=== PATIENT | male | born 1980 | race Asian ===

== ENCOUNTER 2025-01-16 11:38 | Observation (INO) ==
[2025-01-16 12:17] LABS: Hematocrit (blood only) 46.7 % (42.0-52.0); Hemoglobin 16.3 g/dL (14.0-18.0); Immature Granulocytes # (auto) 0.22 K/uL (0.01-0.20); Immature Granulocytes % (auto) 2.9 %; Mean Corpuscular Hemoglobin 30.8 pg (25.0-34.0); Mean Corpuscular Volume 88.3 fL (80.0-100.0); Platelet Count 336 K/uL (130-400); RDW Standard Deviation 37.7 fL (36.4-46.3); Red Blood Count 5.29 M/uL (4.70-6.10); White Blood Count 7.65 K/ul (4.8-10.8)
--- NOTE | 2025-01-16 12:23 | Emergency Department Note ---
Impression & Plan Syncope and collapse, Elevated troponin, Hypophosphatemia, PADDY (acute kidney injury) ED Provider Note NAME: SHEELA NICHOLS AGE: 44 SEX: M : 1980 ARRIVES VIA: Ambulance INFORMANT: Patient ED PROVIDER(S): Elian Serrano MD CHIEF COMPLAINT: Syncope and collapse. PLAN: Disposition: Admit MEDICAL DECISION MAKING: The patient is a pleasant 44-year-old gentleman who presents to the emergency department via EMS for evaluation of syncope and collapse when he was running in the local half marathon. It was reported that the patient was nearly correction the race and had collapsed and was seen on the ground by bystanders at. Report was unclear if the patient was witnessed to have myoclonus, seizure-like activity. Patient heart regaining consciousness and vomiting. Patient was given IV fluid hydration and 4 mg of Zofran by EMS. Patient reports he runs a 10K daily without difficulty. He reports that he never experiences exertional chest pain or dizziness or syncope or near syncope. He does admit that he hydrates poorly and drinks mostly coffee during the day. He reports he will have 1-2 glasses of wine in the evening at most. He reports feeling healthy prior to today. At this time patient reports feeling improved and back to normal after receiving IV fluid hydration. He denies any head pain or back pain. Patient denies any preceding symptoms including denies feeling nauseated, dizzy, chest pain or shortness of breath and does not recall fainting. Patient does report that he looked at his watch and his pace for the first half of the race was substantially faster than his normal pace when he runs. On evaluation the patient is fatigued appearing but no distress, afebrile with blood pressure 90s/60s and heart rate in the 90s and vital signs otherwise stable. He appears clinically dry. Blood pressure improved with IV fluid hydration. Exhibits no focal neurologic deficits. Head is atraumatic. No midline CTL spine tenderness palpation or step-offs. EKG without overt acute ischemia. CXR negative for acute cardiopulmonary process per my personal preliminary review/interpretation. WBC, H/H and platelets within normal limits. Chemistry without metabolic acidosis. Creatinine 1.49 with BUN of 25 consistent with PADDY. Phosphorus was 1.3 with IV repletion initiated. Initial high-sensitivity troponin 56.1 with repeat troponin rising to 182, nonspecific. CPK 170, within normal limits. Lipase normal. UA with 1+ ketones consistent with the patient's clinically dry appearance and otherwise no evidence of infection. 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 Upon reevaluation patient continue to feel improved following IV fluid hydration with 2 L normal saline and potassium Phos IV repletion. However, given his exertional syncope versus possible seizure with elevated troponin and abnormal finding on CT imaging he does agree with plan for admission for further assessment. [facility] the patient for [facility]. Further management per admitting team. Triage Nursing notes reviewed and agree them. Prior/external medical records reviewed Vital Signs: reviewed Differential diagnosis: Syncope, Epilepsy, infection, hypoglycemia, electrolyte abnormalities, cardiac sources, intracerebral event, trauma, toxicologic, neurologic as well as other pathologies. ER treatment provided: See below. Diagnostics interpreted by me: ECG: Normal sinus rhythm, 100 bpm, no ectopy, no Brugada, no overt ST elevation or depression, QTc 436, QRS 70. Cardiac Monitoring: An order for continuous cardiac monitoring was placed and demonstrated normal sinus rhythm, 100 bpm, no ectopy. Laboratory studies: See below Imaging studies: See below Consultation(s): Case was [facility] will [facility] the patient for admission. HPI: Per MDM. ROS: See above HPI for pertinent positives & negatives. A total of 10 systems reviewed and were otherwise negative. VITALS:See Below PHYSICAL EXAMINATION: GENERAL: Awake, alert, well-appearing, in no distress HENT: Normocephalic, atraumatic. Oropharynx with dry mucous membranes and otherwise unremarkable. EYES: Normal conjunctiva. Sclera non-icteric. EOMI. No nystamgus. PEARRL. NECK: Supple. No nuchal rigidity. FROM. No JVD. No midline tenderness to palpation or step-offs. RESPIRATORY: Clear to auscultation. CARDIAC: Regular rate, normal rhythm. No murmurs, rubs or gallops. Extremities warm and well perfused. Pulses equal. ABDOMEN: Soft, non-distended. No tenderness to palpation. No rebound or guarding. No masses. MUSCULOSKELETAL: Chest examination reveals no tenderness. The back is symmetrical on inspection without obvious abnormality. There is no CVA tenderness to palpation. No joint edema. LOWER EXTREMITIES: Calves are equal size bilaterally and non-tender. No edema. No discoloration. NEURO: Cranial nerves II-XII grossly intact. 5/5 strength and SILT x 4 extremities. Cerebellar function intact including [id number], alternating palms, [id number]. SKIN: No rash or jaundice noted. Elian Serrano MD Past Med/Surg History Problem List PADDY (acute kidney injury) (Acute) Hypophosphatemia (Acute) Elevated troponin (Acute) Syncope and collapse (Acute) Surgical History (Updated 01/16/25 @ 16:17 by Phillip Orr MD) History of ear surgery Family History Mother Breast cancer Social History Smoking Status: Never smoker Hx Alcohol Use: Yes Alcohol type: wine Hx Substance Use: No Preferred Language: Yi Communication Ability: Effective Civil Cadd Technician Required: No Beliefs That Will Affect Care: None Current Living Situation: Spouse and Family Current Living Situation Comment: and son Feels Safe at Home: Yes Assistive Devices: None Allergies Allergies Allergy/AdvReac Type Severity Reaction Status Date / Time No Known Allergies Allergy Unverified 01/16/25 15:43 Home Meds Home Medications Medication Instructions Recorded Confirmed No Known Home Medications 01/16/25 01/16/25 Results & Data (ED) Vital Signs Vital Signs - 24 hr 01/16/25 16:00 Pulse Rate [Apical] 78 Respiratory Rate 18 Respiratory Effort / Characteristics Non-Labored Spontaneous Respiratory Depth Normal Respiratory Pattern Regular Blood Pressure [Left Arm] 99/64 L Blood Pressure Mean [Left Arm] 75 Pulse Oximetry 100 Oxygen Delivery Method Room Air Laboratory Data Attestation: I reviewed the patient's lab results. 01/17/25 06:08 01/17/25 06:08 Lab Results 01/16/25 01/16/25 01/16/25 Range/Units 11:50 12:20 14:19 WBC 7.65 (4.8-10.8) K/ul RBC 5.29 (4.70-6.10) M/uL Hgb 16.3 (14.0-18.0) g/dL POC Hgb 12.6 L (14.0-18.0) g/dl Hct 46.7 (42.0-52.0) % POC Hct 37 L (42-52) % MCV 88.3 (80.0-100.0) fL MCH 30.8 (25.0-34.0) pg MCHC 34.9 (32.0-36.0) g/dL RDW Std Deviation 37.7 (36.4-46.3) fL RDW Coeff of Juany 11.9 (11.5-14.5) % Plt Count 336 (130-400) K/uL MPV 9.2 L (9.4-12.4) fL Immature Gran % (Auto) 2.9 % Neut % (Auto) 66.8 % Lymph % (Auto) 24.3 % [place] % (Auto) 3.4 % Eos % (Auto) 1.8 % Baso % (Auto) 0.8 % Neut # (Auto) 5.11 (1.40-6.50) K/uL Lymph # (Auto) 1.86 (1.20-3.40) K/uL [place] # (Auto) 0.26 (0.11-0.59) K/uL Eos # (Auto) 0.14 (0.00-0.50) K/uL Baso # (Auto) 0.06 (0.00-0.20) K/uL Immature Gran # (Auto) 0.22 H (0.01-0.20) K/uL PT 10.8 (9.0-12.0) Seconds INR 1.0 (0.9-1.1) POC Sodium 149 H (135-144) mmol/L Sodium 141 (136-145) mmol/L POC Potassium 3.4 (3.3-5.0) mmol/L Potassium 4.0 (3.5-5.1) mmol/L POC Chloride 113 H (101-112) mmol/L Chloride 108 H (98-107) mmol/L Carbon Dioxide 22 (21-32) mmol/L POC Total CO2 19 L (24-31) mmol/L Anion Gap 11 (3-11) POC Anion Gap 21.0 (16-25) mmol/L POC BUN 20 H (7-18) mg/dl BUN 25 H (6-23) mg/dl Creatinine 1.49 H (0.6-1.4) mg/dl POC Creatinine 1.1 (0.6-1.3) mg/dl Est Cr Clr Drug Dosing 55.0 ml/min eGFR 58.98 BUN/Creatinine Ratio 16.8 (10-20) Glucose 122 H (70-99(Fasting)) mg/dl POC Glucose (other) 56 L* (70-99) mg/dl Calcium 9.8 (8.6-10.3) mg/dl POC Ioniz Calcium Ruth 1.06 L (1.12-1.32) mmol/l Phosphorus 1.3 L* (2.5-4.9) mg/dl Magnesium 2.1 (1.7-2.4) mg/dl Total Bilirubin 0.4 (0.2-1.0) mg/dl AST 32 (13-39) U/L ALT 26 (7-52) U/L Alkaline Phosphatase 59 (34-104) U/L Total Creatine Kinase 170 (30-223) U/L Troponin I High Sens 56.1 H* 182.5 H* D (0-20) pg/ml Total Protein 7.7 (6.0-8.3) gm/dl Albumin 4.3 (3.4-5.0) gm/dl Globulin 3.4 (2.5-4.0) gm/dl Albumin/Globulin Ratio 1.3 (0.9-2) Lipase 49 (11-82) U/L Urine Color Urine Appearance (Clear) Urine pH (4.5-7.5) Ur Specific [place] (1.000-1.030) Urine Protein (Negative) Urine Glucose (UA) (Negative) Urine Ketones (Negative) Urine Blood (Negative) Urine Nitrite (Negative) Urine Bilirubin (Negative) Urine Urobilinogen (Negative) Ur Leukocyte Esterase (Negative) Urine WBC (Auto) (0-5) /hpf Urine RBC (Auto) (0-2) /hpf U Hyaline Cast (Auto) (0-2) /lpf U Epithel Cells (Auto) (0-2) /hpf Urine Bacteria (Auto) (None Seen) Hyaline Casts (None Presnt) /lpf Granular Casts (None Prsent) /lpf Urine Comment 01/16/25 Range/Units 15:14 WBC (4.8-10.8) K/ul RBC (4.70-6.10) M/uL Hgb (14.0-18.0) g/dL POC Hgb (14.0-18.0) g/dl Hct (42.0-52.0) % POC Hct (42-52) % MCV (80.0-100.0) fL MCH (25.0-34.0) pg MCHC (32.0-36.0) g/dL RDW Std Deviation (36.4-46.3) fL RDW Coeff of Ju[place] (11.5-14.5) % Plt Count (130-400) K/uL MPV (9.4-12.4) fL Immature Gran % (Auto) % Neut % (Auto) % Lymph % (Auto) % [place] % (Auto) % Eos % (Auto) % Baso % (Auto) % Neut # (Auto) (1.40-6.50) K/uL Lymph # (Auto) (1.20-3.40) K/uL [place] # (Auto) (0.11-0.59) K/uL Eos # (Auto) (0.00-0.50) K/uL Baso # (Auto) (0.00-0.20) K/uL Immature Gran # (Auto) (0.01-0.20) K/uL PT (9.0-12.0) Seconds INR (0.9-1.1) POC Sodium (135-144) mmol/L Sodium (136-145) mmol/L POC Potassium (3.3-5.0) mmol/L Potassium (3.5-5.1) mmol/L POC Chloride (101-112) mmol/L Chloride (98-107) mmol/L Carbon Dioxide (21-32) mmol/L POC Total CO2 (24-31) mmol/L Anion Gap (3-11) POC Anion Gap (16-25) mmol/L POC BUN (7-18) mg/dl BUN (6-23) mg/dl Creatinine (0.6-1.4) mg/dl POC Creatinine (0.6-1.3) mg/dl Est Cr Clr Drug Dosing ml/min eGFR BUN/Creatinine Ratio (10-20) Glucose (70-99(Fasting)) mg/dl POC Glucose (other) (70-99) mg/dl Calcium (8.6-10.3) mg/dl POC Ioniz Calcium Ruth (1.12-1.32) mmol/l Phosphorus (2.5-4.9) mg/dl Magnesium (1.7-2.4) mg/dl Total Bilirubin (0.2-1.0) mg/dl AST (13-39) U/L ALT (7-52) U/L Alkaline Phosphatase (34-104) U/L Total Creatine Kinase (30-223) U/L Troponin I High Sens (0-20) pg/ml Total Protein (6.0-8.3) gm/dl Albumin (3.4-5.0) gm/dl Globulin (2.5-4.0) gm/dl Albumin/Globulin Ratio (0.9-2) Lipase (11-82) U/L Urine Color Yellow Urine Appearance Clear (Clear) Urine pH 5.5 (4.5-7.5) Ur Specific [place] 1.020 (1.000-1.030) Urine Protein 1+ H (Negative) Urine Glucose (UA) Negative (Negative) Urine Ketones 1+ H (Negative) Urine Blood Negative (Negative) Urine Nitrite Negative (Negative) Urine Bilirubin Negative (Negative) Urine Urobilinogen Negative (Negative) Ur Leukocyte Esterase Negative (Negative) Urine WBC (Auto) 0-5 (0-5) /hpf Urine RBC (Auto) 0-2 (0-2) /hpf U Hyaline Cast (Auto) 11-20 H (0-2) /lpf U Epithel Cells (Auto) 3-5 H (0-2) /hpf Urine Bacteria (Auto) None Seen (None Seen) Hyaline Casts Present A (None Presnt) /lpf Granular Casts Present A (None Prsent) /lpf Urine Comment Administered Medications Discontinued Medications Sodium Chloride (Nss) 1,000 mls @ 999 mls/hr IV .Q1H1M ONE Stop: 01/16/25 12:49 Last Infusion: 01/16/25 15:00 Dose: Infused Documented By: Admin: 01/16/25 12:28 Dose: 999 mls/hr Documented By: AMS Sodium Chloride (Nss) 1,000 mls @ 999 mls/hr IV .Q1H1M ONE Stop: 01/16/25 13:47 Last Infusion: 01/16/25 15:00 Dose: Infused Documented By: Admin: 01/16/25 12:54 Dose: 999 mls/hr Documented By: MIKE Potassium Phosphate 9 mmol/ (Sodium Chloride) 253 mls @ 88 mls/hr IV ONE ONE Stop: 01/16/25 15:52 Last Infusion: 01/16/25 16:30 Dose: Infused Documented By: Admin: 01/16/25 13:15 Dose: 88 mls/hr Documented By: MICHEAL Sodium Chloride (Nss) 1,000 mls @ 125 mls/hr IV .Q8H TIM Stop: 01/20/25 00:00 Last Infusion: 01/17/25 11:34 Dose: Infused Documented By: Infusion: 01/17/25 10:08 Dose: 0 mls/hr Documented By: Admin: 01/17/25 09:21 Dose: 125 mls/hr Documented By: Infusion: 01/17/25 08:58 Dose: Infused Documented By: Admin: 01/17/25 00:17 Dose: 125 mls/hr Documented By: CAPRI Potassium Chloride (Potassium Chloride Crtab 20 Meq Tabcr) 40 meq PO NOW STA Stop: 01/17/25 07:50 Last Admin: 01/17/25 08:10 Dose: 40 meq Documented By: SMG Potassium Phosphate (Potassium Phos 3 Mmol/1 Ml Infusion) 9 mmol IV NOW STA Stop: 01/16/25 12:48 Last Admin: 01/16/25 13:18 Dose: Not Given Documented By: MICHEAL Imaging Data Radiologist's Impression: Brain MRI 01/16/25 16:16 MR brain wo con HISTORY: 44 years-old Male seizure protocol acute seizure-like activity COMPARISON: Head CT 01/16/2025 TECHNIQUE: Multiplanar multisequence MRI of the brain was obtained without IV contrast FINDINGS: There is no restricted diffusion to suggest an acute or subacute infarct. The midline structures are within normal limits. There is no acute intracranial hemorrhage, midline shift, abnormal extra-axial collection, hydrocephalus or abnormal extra-axial collection. No pathologic blooming artifact. Mild patchy subcortical subcentimeter T2 hyperintense foci in the frontal lobes. There is mild asymmetric volume loss of the right at the cava/mesial temporal lobe compared to the left without significant signal abnormality. No acute seizure focus or wiggins matter heterotopia. Cerebral venous sinuses and major arterial flow voids appear patent. Skull, orbits and soft tissues are unremarkable. Mastoid air cells are clear. Mild mucosal thickening of the paranasal sinuses with 1.8 cm focus of polypoid mucosal thickening of the anterior left sphenoid sinus. Right maxillary sinus air-fluid levels suggestive of acute sinusitis. IMPRESSION: 1. No acute intracranial abnormality identified. 2. Asymmetry with mild volume loss of the right mesial temporal lobe/hippocampus without definite signal abnormality should be correlated clinically to exclude mesial temporal sclerosis. 3. Subcentimeter subcortical T2 hyperintense foci of the frontal lobes are nonspecific and may be related to chronic migraines versus early changes of chronic microvascular ischemic disease. ACT 112: Negative or not required by law. The above report was generated using voice recognition software. It may contain grammatical, syntax or spelling errors. Electronically signed by: Leoncio Wright M.D. 01/17/2025 10:14 AM Discharge Plan Visit Data Chief Complaint: Seizure Stated Complaint: POSSILBE SEIZURE, SYNCOPE ED Provider: Elian Serrano Discharge Problem: Syncope and collapse, Elevated troponin, Hypophosphatemia, PADDY (acute kidney injury) Patient Disposition: Admitted As Inpatient Condition: Fair Discharge Instructions Interventions: ED Discharge Assessment Last Done: 01/16/25 20:14
[2025-01-16] MEDS: SODIUM CHLORIDE 0.9% 1,000 ML IV ONE ×2 (12:28→12:54)
--- NOTE | 2025-01-16 12:33 | XRay Report ---
XR chest 1V portable HISTORY: 44 years-old Male Chest pain, nonspecific COMPARISON: None TECHNIQUE: AP view of the chest FINDINGS: Cardiomediastinal and hilar silhouettes are within normal limits. No pneumothorax, pleural effusion o r overt pulmonary edema. Possible 9 mm nodule of the basal right lower lobe. No airspace consolidatio n typical for pneumonia. IMPRESSION: 1. No acute process of the chest. 2. Possible 9 mm right basilar nodule versus summation density. Findings could be correlated with a f ollow-up nonemergent CT of the chest. ACT 112: Negative or not required by law. The above report was generated using voice recognition software. It may contain grammatical, syntax o r spelling errors. Electronically signed by: Leoncio Wright M.D. 01/16/2025 12:31 PM
[2025-01-16 12:34] LABS: Anion Gap 11.0 (3-11); Blood Urea Nitrogen 25.0 mg/dl (6-23); Calcium 9.8 mg/dl (8.6-10.3); Carbon Dioxide 22.0 mmol/L (21-32); Chloride 108.0 mmol/L (98-107); Creatinine Clr Calc Pharmacy 55.0 ml/min; Glucose 122.0 mg/dl (70-99(Fasting)); Potassium 4.0 mmol/L (3.5-5.1); Sodium 141.0 mmol/L (136-145)
[2025-01-16 12:41] LABS: Alanine Aminotransferase 26.0 U/L (7-52); Albumin Level 4.3 gm/dl (3.4-5.0); Alkaline Phosphatase 59.0 U/L (34-104); Bilirubin,Total 0.4 mg/dl (0.2-1.0); Creatine Kinase 170.0 U/L (30-223); Lipase 49.0 U/L (11-82); Magnesium 2.1 mg/dl (1.7-2.4); Total Protein 7.7 gm/dl (6.0-8.3)
[2025-01-16 12:44] LABS: INR 1.0 (0.9-1.1); Prothrombin Time 10.8 Seconds (9.0-12.0)
[2025-01-16 12:45] LABS: Albumin Globulin Ratio 1.3 (0.9-2); Globulin 3.4 gm/dl (2.5-4.0)
[2025-01-16] MEDS: POTASSIUM PHOSPHATE 9 MMOL in SODIUM CHLORIDE 0.9% 250 ML IV ONE (13:15)
[2025-01-16] MEDS: POTASSIUM PHOS 3 MMOL/1 ML INFUSION IV STA (13:18)
--- NOTE | 2025-01-16 14:34 | CT Scan Report ---
CT head without contrast History: Seizure Comparison: None Technique: Using multidetector thin collimation helical acquisition technique, axial, coronal and sagittal CT images from the skull base to the vertex were obtained without intravenous contrast. Dose reduction techniques were achieved by using automatic exposure control and/or adjustment of mA and/or kV according to patient size and/or use of iterative reconstruction technique. Findings: No intracranial hemorrhage, mass-effect, or midline shift. The ventricles are proportionate to the cerebral sulci. The wiggins to white matter differentiation of the cerebral hemispheres is preserved. The basal cisterns are patent. The visualized paranasal sinuses are clear. Mild fluid in the right maxillary sinus. Impression: No acute intracranial pathology. Slight apparent asymmetric dilation of the temporal horn of the right lateral ventricle. Consider follow-up MRI to evaluate for mesial temporal sclerosis, seizure protocol, to include coronal T2 weighted sequences. Electronically signed by Paul Blas 01-16-2025 2:33 PM
--- NOTE | 2025-01-16 15:46 | History & Physical Report ---
Date of Service January 16, 2025 Assessment & Plan (1) Syncope and collapse: Plan: Possible seizure 44 yo M with no significant medical history who presents after collapsing/ having poss. seizure while running a half marathon. Pt runs regularly, about 10K every other day. Overall healthy, [facility] [employer], has no significant medical history and does not take any medications. No hx of seizures. Pt reports he remembers starting a race and then waking up in ambulance. Per report pt was having possibly some myoclonus / seizure observed by bystanders. He was given a honey stick by other runner, pt does not remember that. After he woke up he vomited, pt says he vomited a lot. He received IVF and zofran by EMS, more IVF in ED. His electrolytes were repleted, as his K and Phos were low, Cr elevated. CT head was also obtained in ED. Troponin found elevated. Blood glc level was 56 in ED. Currently he feels well and completely back to normal. Denies any chest pain, denies any nausea, abd. pain, denies any headache or blurry vision. Denies any fever, chills or feeling sick prior to race. Abnormal CT head CT head obtained - No acute intracranial pathology. Slight apparent asymmetric dilation of the temporal horn of the right lateral ventricle. Consider follow-up MRI to evaluate for mesial temporal sclerosis, seizure protocol, to include coronal T2 weighted sequences. Discussed CT w/ neurology - nonspecific, will obtain MRI and EEG Troponin elevated - likely demand ischemia - pt denies any chest pain and runs regularly - will obtain Echo and will admit to telemetry for close monitoring PADDY - Cr elevated - pt likely quite dehydrated, received IVF - UA w/ ketones - c/w poor oral intake prior to race - will recheck BMP and electrolytes tmrw AM Hypokalemia, hypophosphatemia - likely secondary to above, poor oral intake prior to race - replace and monitor History of Present Illness Chief Complaint: syncope/ seizure Primary Care Provider: Mason Rosenthal MD 44 yo M with no significant medical history who presents after collapsing/ having poss. seizure while running a half marathon. Pt reports he runs regularly, about 10K every other day. 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 No hx of seizures. Pt reports he remembers starting a race and then waking up in ambulance. Per report pt was having possibly some myoclonus / seizure observed by bystanders. He was given a honey stick by other runner, pt does not remember that. After he woke up he vomited, pt says he vomited a lot. He received IVf and zofran by EMS, more IVF in ED. His electrolytes were repleted, as his K and Phos were low, Cr elevated. CT head was also obtained in ED. Troponin found elevated. Blood glc level was 56 in ED. Currently he feels well and completely back to normal. Denies any chest pain, denies any nausea, abd. pain, denies any headache or blurry vision. Denies any fever, chills or feeling sick prior to race. Allergies Allergy/AdvReac Type Severity Reaction Status Date / Time No Known Allergies Allergy Unverified 01/16/25 15:43 Home Medications Medication Instructions Recorded Confirmed Type No Known Home Medications 01/16/25 01/16/25 History Past Med/Surg History Problem List (Updated 01/16/25 @ 16:32 by Phillip Orr MD) Syncope and collapse Surgical History (Updated 01/16/25 @ 16:17 by Phillip Orr MD) History of ear surgery Family History (Updated 01/16/25 @ 15:50 by Phillip Orr MD) Mother Breast cancer Social History Smoking Status: Never smoker Preferred Language: Faroese Feels Safe at Home: Yes Review of Systems Review of Systems: All systems reviewed & are unremarkable except as noted in Subjective Physical Exam Constitutional: WD/WN, vitals as above Eyes: PERRL, conjunctivae normal, anicteric sclerae ENMT: external ear and nose normal, oropharynx normal Neck: trachea midline, no thyromegaly Respiratory: normal respiratory effort, lungs clear to auscultation Cardiovascular: RRR, no murmur, no edema Chest (Breasts): Chest: normal inspection of chest Gastrointestinal (Abdomen): normal bowel sounds, soft, nontender, no hepatosplenomegaly Musculoskeletal: no cyanosis or clubbing, extremities motor strength 5/5 Skin: no rashes, warm and dry Neurologic: PERRL, EOMI, accommodation nl, no face palsy, no dysarthria Psychiatric: A+Ox3, euthymic affect Results & Data Results & Data Vital Signs (Past 12 Hours) Vital Signs Temp Pulse Pulse Resp BP BP Pulse Ox 01/16/25 15:00 79 18 96/67 L 99 01/16/25 13:30 89 17 91/68 L 97 01/16/25 12:09 94 H 01/16/25 12:03 95 01/16/25 12:03 90 19 95 01/16/25 11:46 92 01/16/25 11:46 96 H 19 92 01/16/25 11:46 36.9 C 95 H 17 90/65 L 92 O2 Del Method 01/16/25 15:00 Room Air 01/16/25 13:30 Room Air 01/16/25 12:09 01/16/25 12:03 Room Air 01/16/25 12:03 Room Air 01/16/25 11:46 Room Air 01/16/25 11:46 Room Air 01/16/25 11:46 Room Air Laboratory Results 01/16/25 01/16/25 01/16/25 Range/Units 15:14 14:19 12:20 WBC (4.8-10.8) K/ul RBC (4.70-6.10) M/uL Hgb (14.0-18.0) g/dL POC Hgb 12.6 L (14.0-18.0) g/dl Hct (42.0-52.0) % POC Hct 37 L (42-52) % MCV (80.0-100.0) fL MCH (25.0-34.0) pg MCHC (32.0-36.0) g/dL RDW Std Deviation (36.4-46.3) fL RDW Coeff of Juany (11.5-14.5) % Plt Count (130-400) K/uL MPV (9.4-12.4) fL Immature Gran % (Auto) % Neut % (Auto) % Lymph % (Auto) % [place] % (Auto) % Eos % (Auto) % Baso % (Auto) % Neut # (Auto) (1.40-6.50) K/uL Lymph # (Auto) (1.20-3.40) K/uL [place] # (Auto) (0.11-0.59) K/uL Eos # (Auto) (0.00-0.50) K/uL Baso # (Auto) (0.00-0.20) K/uL Immature Gran # (Auto) (0.01-0.20) K/uL PT (9.0-12.0) Seconds INR (0.9-1.1) POC Sodium 149 H (135-144) mmol/L Sodium (136-145) mmol/L POC Potassium 3.4 (3.3-5.0) mmol/L Potassium (3.5-5.1) mmol/L POC Chloride 113 H (101-112) mmol/L Chloride (98-107) mmol/L Carbon Dioxide (21-32) mmol/L POC Total CO2 19 L (24-31) mmol/L Anion Gap (3-11) POC Anion Gap 21.0 (16-25) mmol/L POC BUN 20 H (7-18) mg/dl BUN (6-23) mg/dl Creatinine (0.6-1.4) mg/dl POC Creatinine 1.1 (0.6-1.3) mg/dl Est Cr Clr Drug Dosing ml/min eGFR BUN/Creatinine Ratio (10-20) Glucose (70-99(Fasting)) mg/dl POC Glucose (other) 56 L* (70-99) mg/dl Calcium (8.6-10.3) mg/dl POC Ioniz Calcium Ruth 1.06 L (1.12-1.32) mmol/l Phosphorus (2.5-4.9) mg/dl Magnesium (1.7-2.4) mg/dl Total Bilirubin (0.2-1.0) mg/dl AST (13-39) U/L ALT (7-52) U/L Alkaline Phosphatase (34-104) U/L Total Creatine Kinase (30-223) U/L Troponin I High Sens 182.5 H* D (0-20) pg/ml Total Protein (6.0-8.3) gm/dl Albumin (3.4-5.0) gm/dl Globulin (2.5-4.0) gm/dl Albumin/Globulin Ratio (0.9-2) Lipase (11-82) U/L Urine Color Pending Urine Appearance Pending Urine pH Pending Ur Specific [place] Pending Urine Protein Pending Urine Glucose (UA) Pending Urine Ketones Pending Urine Blood Pending Urine Nitrite Pending Urine Bilirubin Pending Urine Urobilinogen Pending Ur Leukocyte Esterase Pending Urine Comment 01/16/25 Range/Units 11:50 WBC 7.65 (4.8-10.8) K/ul RBC 5.29 (4.70-6.10) M/uL Hgb 16.3 (14.0-18.0) g/dL POC Hgb (14.0-18.0) g/dl Hct 46.7 (42.0-52.0) % POC Hct (42-52) % MCV 88.3 (80.0-100.0) fL MCH 30.8 (25.0-34.0) pg MCHC 34.9 (32.0-36.0) g/dL RDW Std Deviation 37.7 (36.4-46.3) fL RDW Coeff of Juany 11.9 (11.5-14.5) % Plt Count 336 (130-400) K/uL MPV 9.2 L (9.4-12.4) fL Immature Gran % (Auto) 2.9 % Neut % (Auto) 66.8 % Lymph % (Auto) 24.3 % [place] % (Auto) 3.4 % Eos % (Auto) 1.8 % Baso % (Auto) 0.8 % Neut # (Auto) 5.11 (1.40-6.50) K/uL Lymph # (Auto) 1.86 (1.20-3.40) K/uL [place] # (Auto) 0.26 (0.11-0.59) K/uL Eos # (Auto) 0.14 (0.00-0.50) K/uL Baso # (Auto) 0.06 (0.00-0.20) K/uL Immature Gran # (Auto) 0.22 H (0.01-0.20) K/uL PT 10.8 (9.0-12.0) Seconds INR 1.0 (0.9-1.1) POC Sodium (135-144) mmol/L Sodium 141 (136-145) mmol/L POC Potassium (3.3-5.0) mmol/L Potassium 4.0 (3.5-5.1) mmol/L POC Chloride (101-112) mmol/L Chloride 108 H (98-107) mmol/L Carbon Dioxide 22 (21-32) mmol/L POC Total CO2 (24-31) mmol/L Anion Gap 11 (3-11) POC Anion Gap (16-25) mmol/L POC BUN (7-18) mg/dl BUN 25 H (6-23) mg/dl Creatinine 1.49 H (0.6-1.4) mg/dl POC Creatinine (0.6-1.3) mg/dl Est Cr Clr Drug Dosing 55.0 ml/min eGFR 58.98 BUN/Creatinine Ratio 16.8 (10-20) Glucose 122 H (70-99(Fasting)) mg/dl POC Glucose (other) (70-99) mg/dl Calcium 9.8 (8.6-10.3) mg/dl POC Ioniz Calcium Ruth (1.12-1.32) mmol/l Phosphorus 1.3 L* (2.5-4.9) mg/dl Magnesium 2.1 (1.7-2.4) mg/dl Total Bilirubin 0.4 (0.2-1.0) mg/dl AST 32 (13-39) U/L ALT 26 (7-52) U/L Alkaline Phosphatase 59 (34-104) U/L Total Creatine Kinase 170 (30-223) U/L Troponin I High Sens 56.1 H* (0-20) pg/ml Total Protein 7.7 (6.0-8.3) gm/dl Albumin 4.3 (3.4-5.0) gm/dl Globulin 3.4 (2.5-4.0) gm/dl Albumin/Globulin Ratio 1.3 (0.9-2) Lipase 49 (11-82) U/L Urine Color Urine Appearance Urine pH Ur Specific [place] Urine Protein Urine Glucose (UA) Urine Ketones Urine Blood Urine Nitrite Urine Bilirubin Urine Urobilinogen Ur Leukocyte Esterase Urine Comment Diagnostic Findings CT head Findings: No intracranial hemorrhage, mass-effect, or midline shift. The ventricles are proportionate to the cerebral sulci. The wiggins to white matter differentiation of the cerebral hemispheres is preserved. The basal cisterns are patent. The visualized paranasal sinuses are clear. Mild fluid in the right maxillary sinus. Impression: No acute intracranial pathology. Slight apparent asymmetric dilation of the temporal horn of the right lateral ventricle. Consider follow-up MRI to evaluate for mesial temporal sclerosis, seizure protocol, to include coronal T2 weighted sequences. CXR FINDINGS: Cardiomediastinal and hilar silhouettes are within normal limits. No pneumothorax, pleural effusion or overt pulmonary edema. Possible 9 mm nodule of the basal right lower lobe. No airspace consolidation typical for pneumonia. IMPRESSION: 1. No acute process of the chest. 2. Possible 9 mm right basilar nodule versus summation density. Findings could be correlated with a follow-up nonemergent CT of the chest.
[2025-01-16 15:57] LABS: Appearance Urine Clear (Clear); Bacteria Urine Automated None Seen (None Seen); Glucose Urine UA Negative (Negative); RBC Urine Automated 0-2 /hpf (0-2); WBC Urine Automated 0-5 /hpf (0-5)
[2025-01-16] MEDS ORDERED: ACETAMINOPHEN 325 MG TAB PO PRN (16:23)
[2025-01-16 22:13] LABS: Anion Gap 5.0 (3-11); Blood Urea Nitrogen 23.0 mg/dl (6-23); Calcium 8.5 mg/dl (8.6-10.3); Carbon Dioxide 24.0 mmol/L (21-32); Chloride 108.0 mmol/L (98-107); Creatinine Clr Calc Pharmacy 82.8 ml/min; Glucose 95.0 mg/dl (70-99(Fasting)); Magnesium 1.9 mg/dl (1.7-2.4); Potassium 4.1 mmol/L (3.5-5.1); Sodium 137.0 mmol/L (136-145)
[2025-01-17] MEDS: SODIUM CHLORIDE 0.9% 1,000 ML IV SCH (00:17)
[2025-01-17 02:34] VITALS: RESP 16
[2025-01-17 07:24] LABS: Anion Gap 7.0 (3-11); Blood Urea Nitrogen 21.0 mg/dl (6-23); Calcium 8.0 mg/dl (8.6-10.3); Carbon Dioxide 23.0 mmol/L (21-32); Chloride 109.0 mmol/L (98-107); Creatinine Clr Calc Pharmacy 86.3 ml/min; Glucose 77.0 mg/dl (70-99(Fasting)); Magnesium 2.1 mg/dl (1.7-2.4); Potassium 3.7 mmol/L (3.5-5.1); Sodium 139.0 mmol/L (136-145)
[2025-01-17 07:52] LABS: Hematocrit (blood only) 38.3 % (42.0-52.0); Hemoglobin 13.2 g/dL (14.0-18.0); Mean Corpuscular Hemoglobin 30.8 pg (25.0-34.0); Mean Corpuscular Volume 89.5 fL (80.0-100.0); Platelet Count 241 K/uL (130-400); RDW Standard Deviation 38.7 fL (36.4-46.3); Red Blood Count 4.28 M/uL (4.70-6.10); White Blood Count 8.85 K/ul (4.8-10.8)
[2025-01-17] MEDS: POTASSIUM CHLORIDE CRTAB 20 MEQ TABCR PO STA (08:10)
--- NOTE | 2025-01-17 08:29 | XCELERA ---
[id number] \\[id number]
--- NOTE | 2025-01-17 08:34 | Electrocardiogram Report ---
Test Reason : Blood Pressure : */* mmHG Vent. Rate : 100 BPM Atrial Rate : 100 BPM P-R Int : 170 ms QRS Dur : 70 ms QT Int : 338 ms P-R-T Axes : 43 52 34 degrees QTcB Int : 436 ms Normal sinus rhythm Normal ECG No previous ECGs available Confirmed by Alyssa Irving (Jeanne) on 01/17/2025 8:33:56 AM Referred By: REFERRED SELF Confirmed By: Alyssa Irving
--- NOTE | 2025-01-17 09:36 | Cardiology Consultation ---
Date of Consultation January 17, 2025 Assessment & Plan (1) Syncope and collapse: (2) Elevated troponin: (3) Hypophosphatemia: (4) PADDY (acute kidney injury): Plan Question if episode took place due to volume depletion. Patient states he did not drink much water before or during the event. The spell happened at the distance he is used to doing in training every day and he notes his pace was much faster than his usual exercise. Elevation in troponin likely reflective of myocardial strain. No symptoms to suggest angina. Echo without evidence of structural heart disease. No arrhythmias on telemetry. CT brain is normal. MRI brain completed, results are pending. * await results of MRI brain. If normal, proceed with stress echocardiogram for further risk stratification. * Pause IV fluids for now. Encourage oral intake. * Add repeat CPK to this morning's blood draw. 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 The patient reports that he is physically active. He typically runs about 6 miles a day. Yesterday he was participating in the [employer] half marathon. He recalls feeling well early in the day and sometime around the long-term point of the 13.1 mile event he reportedly lost postural tone and was assisted by bystanders. He does not have any recollection of the actual event until he regained consciousness and a bystander helped him call a friend with his cell phone. The details of what was witnessed are not well recorded but apparently there was some concern of some tonic-clonic movement. The patient states that in the interim he has felt well. He received over 3 L of IV fluid thus far. Lab work performed on arrival was notable for acute kidney injury with presenting creatinine of 1.49 which is improved to 0.95 mg/dL this morning. It is noted that his initial ynnas-ih-ifoi glucose was 56 mg/dL. Electrolyte abnormalities were noted including low calcium level low phosphorus level. CPK level was only measured once and was 170 units/L. High-sensitivity troponin was mildly elevated on presentation at 56.1 PG per mL and has since trended up to 251 PG per mL as of 2142 last night and has since trended down to 239.5 PG per mL. The patient denies any recent chest discomfort. He denies lightheadedness or dizziness. 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 [employer] Allergies Allergy/AdvReac Type Severity Reaction Status Date / Time No Known Allergies Allergy Unverified 01/16/25 15:43 Home Medications Medication Instructions Recorded Confirmed Type No Known Home Medications 01/16/25 01/16/25 History Patient History Surgical History (Updated 01/16/25 @ 16:17 by Phillip Orr MD) History of ear surgery Family History Mother Breast cancer Social History Smoking Status: Never smoker Hx Alcohol Use: Yes Alcohol type: wine Hx Substance Use: No Preferred Language: Tanzanian Communication Ability: Effective Search Marketing Specialist Required: No Beliefs That Will Affect Care: None Current Living Situation: Spouse and Family Current Living Situation Comment: and son Other Information That Helps Us Care for You: No Feels Safe at Home: Yes Safety Concerns: Feels Safe At This Time Assistive Devices: None Review of Systems Review of Systems: All systems reviewed & are unremarkable except as noted in HPI & below Physical Exam Physical Exam: General: no acute distress and stated age Eyes: conjunctiva are pink and non-injected, sclera clear Neck: normal jugular venous pulse, no hepatojugular reflux Chest: normal shape and normal respiratory effort Lungs: clear to auscultation and percussion Cardiac Exam: - regular heart sounds, no murmurs, rubs, or gallops, no jugular venous distention Abdomen: abdomen soft, non-tender, no abnormal masses and no hepatosplenomegaly Extremities: no edema and no cyanosis Neuro:awake, conversant, follows commands, no focal motor deficits Psych: appropriate affect and insight. Results & Data Vital Signs (Past 12 Hours) Vital Signs Temp Pulse Pulse Resp BP BP Pulse Ox 01/17/25 07:55 37.4 C 82 16 88/56 L 96 01/17/25 07:02 69 01/17/25 02:21 37.4 C 79 16 95/52 L 95 01/16/25 22:25 37.3 C 84 18 93/53 L 96 O2 Del Method 01/17/25 07:55 Room Air 01/17/25 07:02 01/17/25 02:21 Room Air 01/16/25 22:25 Room Air Laboratory Results Cardiac Enzymes 01/16/25 01/16/25 01/16/25 Range/Units 11:50 14:19 21:43 AST 32 (13-39) U/L Troponin I High Sens 56.1 H* 182.5 H* D 255.1 H* D (0-20) pg/ml 01/17/25 Range/Units 06:08 AST (13-39) U/L Troponin I High Sens 239.5 H* (0-20) pg/ml Coagulation 01/16/25 Range/Units 11:50 PT 10.8 (9.0-12.0) Seconds CBC 01/16/25 01/17/25 Range/Units 11:50 06:08 WBC 7.65 8.85 (4.8-10.8) K/ul RBC 5.29 4.28 L (4.70-6.10) M/uL Hgb 16.3 13.2 L D (14.0-18.0) g/dL Hct 46.7 38.3 L (42.0-52.0) % Plt Count 336 241 (130-400) K/uL Neut # (Auto) 5.11 (1.40-6.50) K/uL Lymph # (Auto) 1.86 (1.20-3.40) K/uL [place] # (Auto) 0.26 (0.11-0.59) K/uL Eos # (Auto) 0.14 (0.00-0.50) K/uL Baso # (Auto) 0.06 (0.00-0.20) K/uL Comprehensive Metabolic Panel 01/16/25 01/16/25 01/17/25 Range/Units 11:50 21:43 06:08 Sodium 141 137 139 (136-145) mmol/L Potassium 4.0 4.1 3.7 (3.5-5.1) mmol/L Chloride 108 H 108 H 109 H (98-107) mmol/L Carbon Dioxide 22 24 23 (21-32) mmol/L BUN 25 H 23 21 (6-23) mg/dl Creatinine 1.49 H 0.99 D 0.95 (0.6-1.4) mg/dl Glucose 122 H 95 77 (70-99(Fasting)) mg/dl Calcium 9.8 8.5 L 8.0 L (8.6-10.3) mg/dl AST 32 (13-39) U/L ALT 26 (7-52) U/L Alkaline Phosphatase 59 (34-104) U/L Total Protein 7.7 (6.0-8.3) gm/dl Albumin 4.3 (3.4-5.0) gm/dl Intake and Output 01/16/25 01/17/25 01/17/25 22:59 06:59 14:59 Intake Total 2253 / 2403 150 / 2403 1000 / 1000 Balance 2253 / 2403 150 / 2403 1000 / 1000 Intake: IV 2253 / 2253 1000 / 1000 Potassium Phosphate 9 mmol In 253 / 253 Sodium Chloride 0.9% 250 ml @ 88 mls/hr IV ONE ONE Rx#: [id number] Sodium Chloride 0.9% 1,000 ml @ 2000 / 2000 1000 / 1000 125 mls/hr IV .Q8H [facility] Rx#: [id number] Oral 150 / 150 Other: Weight 65.8 kg Weight Measurement Method Standing Scale Diagnostic Findings Present EKG 01/16/2025 at 11:45 AM: Sinus rhythm at 100 bpm, otherwise normal EKG Repeat EKG performed this morning at 12:12 AM, interpreted/independently sinus rhythm at 75 bpm. Normal EKG Transthoracic echocardiogram performed today 01/11/2025 and interpret independently: Normal left ventricular myocardial thickness No regional wall motion abnormalities LVEF in the range of 60-65% without valvular heart disease. Coding Level of Care Code 89856 IN/OBS CONSULT LVL 4,60M Diagnoses Syncope and collapse R55 Elevated troponin R79.89 Hypophosphatemia E83.39 PADDY (acute kidney injury) N17.9
[2025-01-17 10:03] LABS: Creatine Kinase 282.0 U/L (30-223)
--- NOTE | 2025-01-17 10:17 | Magnetic Resonance Report ---
MR brain wo con HISTORY: 44 years-old Male seizure protocol acute seizure-like activity COMPARISON: Head CT 01/16/2025 TECHNIQUE: Multiplanar multisequence MRI of the brain was obtained without IV contrast FINDINGS: There is no restricted diffusion to suggest an acute or subacute infarct. The midline structures are within normal limits. There is no acute intracranial hemorrhage, midline shift, abnormal extra-axial collection, hydrocephalus or abnormal extra-axial collection. No pathologic blooming artifact. Mild p atchy subcortical subcentimeter T2 hyperintense foci in the frontal lobes. There is mild asymmetric v olume loss of the right at the cava/mesial temporal lobe compared to the left without significant sig nal abnormality. No acute seizure focus or wiggins matter heterotopia. Cerebral venous sinuses and major arterial flow voids appear patent. Skull, orbits and soft tissues a re unremarkable. Mastoid air cells are clear. Mild mucosal thickening of the paranasal sinuses with 1 .8 cm focus of polypoid mucosal thickening of the anterior left sphenoid sinus. Right maxillary sinus air-fluid levels suggestive of acute sinusitis. IMPRESSION: 1. No acute intracranial abnormality identified. 2. Asymmetry with mild volume loss of the right mesial temporal lobe/hippocampus without definite sig nal abnormality should be correlated clinically to exclude mesial temporal sclerosis. 3. Subcentimeter subcortical T2 hyperintense foci of the frontal lobes are nonspecific and may be rel ated to chronic migraines versus early changes of chronic microvascular ischemic disease. ACT 112: Negative or not required by law. The above report was generated using voice recognition software. It may contain grammatical, syntax o r spelling errors. Electronically signed by: Leoncio Wright M.D. 01/17/2025 10:14 AM
[2025-01-17 11:28] VITALS: PULSE 63; TEMP 98.1; O2SAT 97
--- NOTE | 2025-01-17 11:45 | Neurology Consultation ---
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 - defer antiepileptic medication as this is a first-time seizure - recommend 1 month outpatient Neurology follow up - if recurrent seizure, recommend initiate Keppra 500 mg twice daily, I did discuss with the patient side effects of irritability or restlessness - AED not indicated at this time - I advised the patient no driving per [place] law I discussed my recommendations with Dr. Phillip Orr via tiger text. No further Neurology recommendations. Thank you for this consult. Please call with questions. Telehealth Consultation Telehealth Information Telehealth Information: I performed this visit using a real-time telehealth connection between my location and the patients originating location ([facility]). After connecting through interactive tele-video, patient was identified by name and date of and/or wristband check.Patient (or authorized healthcare financial foundations representative) was informed that this was a telemedicine visit and it was being conducted confidentially over secure lines. My office door was closed and no one else was present in the room with me.Patient (or authorized healthcare financial foundations representative) provided consent to proceed with the visit, expressed an understanding of privacy and security of the telemedicine visit, and gave permission to have a hospital financial foundations representative in the room in order to assist with the visit and to conduct portions of the visit, as needed. I informed the patient (or authorized healthcare financial foundations representative) that I reviewed their record and presented the opportunity for them to ask any questions regarding the visit today. The patient agreed to participate. History of Present Illness Reason for Consultation: witnessed seizure Attending Physician: Phillip Orr MD History of Present Illness Miguelito Watkins is a 44-year-old male with no known past medical history who presents to [facility] Emergency Department on 01/16/2025 after he was witnessed to collapse and have convulsive activity while running a half marathon. I saw and examined the patient at bedside. No family is present for the encounter. The patient tells me that he remembers starting the race and then he woke up in an ambulance. Onlookers reported collapse and convulsive activity to EMS. The patient tells me he has never had a seizure or syncopal episode before. He denies a history of head trauma, brain injury, brain tumor, stroke, or brain surgery. He denies family history of seizure. No drug use, no complicated history. He tells me he drinks no water. He drinks 3 cups of caffeinated coffee per day and 1-2 glasses of wine every other day. He has never had alcohol withdrawal. He had elevated creatinine on admission 1.49 which corrected to 0.95 with fluid administration. Concern for dehydration. 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 TTE revealed LVEF 60-65%, normal left atrium, no thrombus. Patient hypotensive 88/56. I discussed the patient's MRI findings and reviewed images with him at the bedside. Mesial temporal sclerosis is a risk factor for recurrent seizure, however this is a first-time event and patient prefers not to take antiepileptic medication at this time. We did discuss initiation of Keppra and its side effects. Patient prefers to trial off medication since this is a first-time event. Agrees to Neurology follow up in 1 month, increase water intake, decrease caffeine intake, and decreased alcohol intake. We discussed light exercise but not significant physical exertion until outpatient Neurology appointment. All questions and concerns were answered. Allergies Allergy/AdvReac Type Severity Reaction Status Date / Time No Known Allergies Allergy Unverified 01/16/25 15:43 Home Medications Medication Instructions Recorded Confirmed Type No Known Home Medications 01/16/25 01/16/25 History Patient History Surgical History (Updated 01/16/25 @ 16:17 by Phillip Orr MD) History of ear surgery Family History Mother Breast cancer Social History Smoking Status: Never smoker Hx Alcohol Use: Yes Alcohol type: wine Hx Substance Use: No Preferred Language: Macedonian Communication Ability: Effective Cra Required: No Beliefs That Will Affect Care: None Current Living Situation: Spouse and Family Current Living Situation Comment: and son Other Information That Helps Us Care for You: No Feels Safe at Home: Yes Safety Concerns: Feels Safe At This Time Assistive Devices: None Review of Systems ROS reviewed and negative except as above Physical Exam Mental status: Patient is alert and oriented HEENT: No tongue bite Strength: Patient is antigravity in all extremities without drift Gait: Normal Results & Data Vital Signs (Past 12 Hours) Vital Signs Temp Pulse Pulse Resp BP BP Pulse Ox 01/17/25 11:27 36.7 C 63 16 108/61 97 01/17/25 07:55 37.4 C 82 16 88/56 L 96 01/17/25 07:02 69 01/17/25 02:21 37.4 C 79 16 95/52 L 95 O2 Del Method 01/17/25 11:27 Room Air 01/17/25 07:55 Room Air 01/17/25 07:02 01/17/25 02:21 Room Air Laboratory Results 01/17/25 01/16/25 01/16/25 06:08 21:43 15:14 WBC 8.85 RBC 4.28 L Hgb 13.2 L D POC Hgb Hct 38.3 L POC Hct MCV 89.5 MCH 30.8 MCHC 34.5 RDW Std Deviation 38.7 RDW Coeff of Juany 12.0 Plt Count 241 MPV 9.1 L Immature Gran % (Auto) Neut % (Auto) Lymph % (Auto) Chaves % (Auto) Eos % (Auto) Baso % (Auto) Neut # (Auto) Lymph # (Auto) Chaves # (Auto) Eos # (Auto) Baso # (Auto) Immature Gran # (Auto) PT INR POC Sodium Sodium 139 137 POC Potassium Potassium 3.7 4.1 POC Chloride Chloride 109 H 108 H Carbon Dioxide 23 24 POC Total CO2 Anion Gap 7 5 POC Anion Gap POC BUN BUN 21 23 Creatinine 0.95 0.99 D POC Creatinine Est Cr Clr Drug Dosing 86.3 82.8 eGFR 101.22 96.33 BUN/Creatinine Ratio 22.1 H 23.2 H Glucose 77 95 POC Glucose (other) Calcium 8.0 L 8.5 L POC Ioniz Calcium Ruth Phosphorus 2.6 2.9 D Magnesium 2.1 1.9 Total Bilirubin AST ALT Alkaline Phosphatase Total Creatine Kinase 282 H Troponin I High Sens 239.5 H* 255.1 H* D Total Protein Albumin Globulin Albumin/Globulin Ratio Lipase Urine Color Yellow Urine Appearance Clear Urine pH 5.5 Ur Specific [place] 1.020 Urine Protein 1+ H Urine Glucose (UA) Negative Urine Ketones 1+ H Urine Blood Negative Urine Nitrite Negative Urine Bilirubin Negative Urine Urobilinogen Negative Ur Leukocyte Esterase Negative Urine WBC (Auto) 0-5 Urine RBC (Auto) 0-2 U Hyaline Cast (Auto) 11-20 H U Epithel Cells (Auto) 3-5 H Urine Bacteria (Auto) None Seen Hyaline Casts Present A Granular Casts Present A Urine Comment 01/16/25 01/16/25 01/16/25 14:19 12:20 11:50 WBC 7.65 RBC 5.29 Hgb 16.3 POC Hgb 12.6 L Hct 46.7 POC Hct 37 L MCV 88.3 MCH 30.8 MCHC 34.9 RDW Std Deviation 37.7 RDW Coeff of Juany 11.9 Plt Count 336 MPV 9.2 L Immature Gran % (Auto) 2.9 Neut % (Auto) 66.8 Lymph % (Auto) 24.3 Chaves % (Auto) 3.4 Eos % (Auto) 1.8 Baso % (Auto) 0.8 Neut # (Auto) 5.11 Lymph # (Auto) 1.86 Chaves # (Auto) 0.26 Eos # (Auto) 0.14 Baso # (Auto) 0.06 Immature Gran # (Auto) 0.22 H PT 10.8 INR 1.0 POC Sodium 149 H Sodium 141 POC Potassium 3.4 Potassium 4.0 POC Chloride 113 H Chloride 108 H Carbon Dioxide 22 POC Total CO2 19 L Anion Gap 11 POC Anion Gap 21.0 POC BUN 20 H BUN 25 H Creatinine 1.49 H POC Creatinine 1.1 Est Cr Clr Drug Dosing 55.0 eGFR 58.98 BUN/Creatinine Ratio 16.8 Glucose 122 H POC Glucose (other) 56 L* Calcium 9.8 POC Ioniz Calcium Ruth 1.06 L Phosphorus 1.3 L* Magnesium 2.1 Total Bilirubin 0.4 AST 32 ALT 26 Alkaline Phosphatase 59 Total Creatine Kinase 170 Troponin I High Sens 182.5 H* D 56.1 H* Total Protein 7.7 Albumin 4.3 Globulin 3.4 Albumin/Globulin Ratio 1.3 Lipase 49 Urine Color Urine Appearance Urine pH Ur Specific [place] Urine Protein Urine Glucose (UA) Urine Ketones Urine Blood Urine Nitrite Urine Bilirubin Urine Urobilinogen Ur Leukocyte Esterase Urine WBC (Auto) Urine RBC (Auto) U Hyaline Cast (Auto) U Epithel Cells (Auto) Urine Bacteria (Auto) Hyaline Casts Granular Casts Urine Comment Diagnostic Findings Head CT 01/16/25 12:47 Impression: No acute intracranial pathology. Slight apparent asymmetric dilation of the temporal horn of the right lateral ventricle. Consider follow-up MRI to evaluate for mesial temporal sclerosis, seizure protocol, to include coronal T2 weighted sequences. Electronically signed by Paul Blas 01-16-2025 2:33 PM Brain MRI 01/16/25 16:16 IMPRESSION: 1. No acute intracranial abnormality identified. 2. Asymmetry with mild volume loss of the right mesial temporal lobe/hippocampus without definite signal abnormality should be correlated clinically to exclude mesial temporal sclerosis. 3. Subcentimeter subcortical T2 hyperintense foci of the frontal lobes are nonspecific and may be related to chronic migraines versus early changes of chronic microvascular ischemic disease Electronically signed by: Leoncio Wright M.D. 01/17/2025 10:14 AM Medications Administered Home Medications Medication Instructions Recorded Confirmed Last Taken No Known Home Medications 01/16/25 01/16/25 Unknown
--- NOTE | 2025-01-17 13:12 | XCELERA ---
[id number] \\[id number]
--- NOTE | 2025-01-17 13:33 | Discharge Summary ---
Date of Service January 17, 2025 Admission HPI Per Admitting Provider 44 yo M with no significant medical history who presents after collapsing/ having poss. seizure while running a half marathon. Pt reports he runs regularly, about 10K every other day. 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 No hx of seizures. Pt reports he remembers starting a race and then waking up in ambulance. Per report pt was having possibly some myoclonus / seizure observed by bystanders. He was given a honey stick by other runner, pt does not remember that. After he woke up he vomited, pt says he vomited a lot. He received IV fluids and zofran by EMS, more IVF in ED. His electrolytes were repleted, as his K and Phos were low, Cr elevated. CT head was also obtained in ED. Troponin found elevated. Blood glc level was 56 in ED. Currently he feels well and completely back to normal. Denies any chest pain, denies any nausea, abd. pain, denies any headache or blurry vision. Denies any fever, chills or feeling sick prior to race. Admission Exam Per Admitting Provider Constitutional: WD/WN, vitals as above Eyes: PERRL, conjunctivae normal, anicteric sclerae ENMT: external ear and nose normal, oropharynx normal Neck: trachea midline, no thyromegaly Respiratory: normal respiratory effort, lungs clear to auscultation Cardiovascular: RRR, no murmur, no edema Chest (Breasts): Chest: normal inspection of chest Gastrointestinal (Abdomen): normal bowel sounds, soft, nontender, no hepatosplenomegaly Musculoskeletal: no cyanosis or clubbing, extremities motor strength 5/5 Skin: no rashes, warm and dry Neurologic: PERRL, EOMI, accommodation nl, no face palsy, no dysarthria Psychiatric: A+Ox3, euthymic affect Principal Diagnosis Syncope, possible seizure PADDY, electrolyte abnormalities elevated troponin Discharge Exam Constitutional: WD/WN, vitals as above Eyes: PERRL, conjunctivae normal, anicteric sclerae ENMT: external ear and nose normal, oropharynx normal Neck: trachea midline, no thyromegaly Respiratory: normal respiratory effort, lungs clear to auscultation Cardiovascular: RRR, no murmur, no edema Chest (Breasts): Chest: normal inspection of chest Gastrointestinal (Abdomen): normal bowel sounds, soft, nontender Musculoskeletal: no cyanosis or clubbing, extremities motor strength 5/5 Skin: no rashes, warm and dry Neurologic: PERRL, EOMI, no face palsy, no dysarthria, moves extremities Psychiatric: A+Ox3, euthymic affect Discharge Data Allergies Allergy/AdvReac Type Severity Reaction Status Date / Time No Known Allergies Allergy Unverified 01/16/25 15:43 Consultations 01/16/25 15:46 Consult Neurology Routine 01/16/25 15:58 ED Decision to Admit Stat 01/17/25 08:00 Consult Cardiology Routine Ordered Studies 01/16/25 12:47 CT head/brain wo con Stat Findings: No intracranial hemorrhage, mass-effect, or midline shift. The ventricles are proportionate to the cerebral sulci. The wiggins to white matter differentiation of the cerebral hemispheres is preserved. The basal cisterns are patent. The visualized paranasal sinuses are clear. Mild fluid in the right maxillary sinus. Impression: No acute intracranial pathology. Slight apparent asymmetric dilation of the temporal horn of the right lateral ventricle. Consider follow-up MRI to evaluate for mesial temporal sclerosis, seizure protocol, to include coronal T2 weighted sequences. 01/16/25 16:16 MR brain wo con Routine FINDINGS: There is no restricted diffusion to suggest an acute or subacute infarct. The midline structures are within normal limits. There is no acute intracranial hemorrhage, midline shift, abnormal extra-axial collection, hydrocephalus or abnormal extra-axial collection. No pathologic blooming artifact. Mild patchy subcortical subcentimeter T2 hyperintense foci in the frontal lobes. There is mild asymmetric volume loss of the right at the cava/mesial temporal lobe compared to the left without significant signal abnormality. No acute seizure focus or wiggins matter heterotopia. Cerebral venous sinuses and major arterial flow voids appear patent. Skull, orbits and soft tissues are unremarkable. Mastoid air cells are clear. Mild mucosal thickening of the paranasal sinuses with 1.8 cm focus of polypoid mucosal thickening of the anterior left sphenoid sinus. Right maxillary sinus air-fluid levels suggestive of acute sinusitis. IMPRESSION: 1. No acute intracranial abnormality identified. 2. Asymmetry with mild volume loss of the right mesial temporal lobe/hippocampus without definite signal abnormality should be correlated clinically to exclude mesial temporal sclerosis. 3. Subcentimeter subcortical T2 hyperintense foci of the frontal lobes are nonspecific and may be related to chronic migraines versus early changes of chronic microvascular ischemic disease. Hospital Course (1) Syncope and collapse: Possible seizure 44 yo M with no significant medical history who presents after collapsing/ having poss. seizure while running a half marathon. Pt runs regularly, about 10K every other day. 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 No hx of seizures. Pt reports he remembers starting a race and then waking up in ambulance. Per report pt was having possibly some myoclonus / seizure observed by bystanders. He was given a honey stick by other runner, pt does not remember that. After he woke up he vomited, pt says he vomited a lot. He received IVF and zofran by EMS, more IVF in ED. His electrolytes were repleted, as his K and Phos were low, Cr elevated. CT head was also obtained in ED. Troponin found elevated. Blood glc level was 56 in ED. Currently he feels well and completely back to normal. Denies any chest pain, denies any nausea, abd. pain, denies any headache or blurry vision. Denies any fever, chills or feeling sick prior to race. Abnormal CT head CT head obtained - No acute intracranial pathology. Slight apparent asymmetric dilation of the temporal horn of the right lateral ventricle. Consider follow-up MRI to evaluate for mesial temporal sclerosis, seizure protocol, to include coronal T2 weighted sequences. Discussed CT w/ neurology - nonspecific, will obtain MRI and EEG Per neurology - Differential diagnosis convulsive syncope versus seizure in setting of right mesial temporal sclerosis as significant seizure risk factor. - defer antiepileptic medication as this is a first-time seizure - recommend 1 month outpatient Neurology follow up - if recurrent seizure, recommend initiate Keppra 500 mg twice daily, I did discuss with the patient side effects of irritability or restlessness - AED not indicated at this time - I advised the patient no driving per [place] law - increase water intake, decrease caffeine intake, and decreased alcohol intake. Only light exercise but not significant physical exertion until outpatient Neurology appointment Troponin elevated - likely demand ischemia - pt denies any chest pain and runs regularly - will obtain Echo and will admit to telemetry for close monitoring - pt was seen by cardiology and stress echo was obtained - Per cardiology - Submaximal exercise stress echocardiogram performed. No evidence of exercise- induced arrhythmia or ischemia having achieved 75% of the maximal age-predicted heart rate. No symptoms suggestive angina reported. No dizziness reported. The MRI of the brain had revealed suggestion mesial temporal sclerosis. Neurology input noted and appreciated with note that mesial temporal sclerosis is a potential risk factor for seizure and bystanders witnessed the patient having a convulsive episode No further cardiac workup felt to be indicated at present. The mild high- sensitivity troponin elevation could likely be explained on the basis of the patient's high physical exertion and with patient episode. I agree with neurology plan for the patient to avoid strenuous exercise until after seen neurology follow-up. PADDY - resolved - Cr elevated -> now back to normal - pt likely quite dehydrated, received IVF - UA w/ ketones - c/w poor oral intake prior to race Hypokalemia, hypophosphatemia - likely secondary to above, poor oral intake prior to race - replace and monitor Total Time Total Time Spent Total Time Spent (In Minutes): 40 Discharge Plan Discharge Items Patient Disposition: Home - Self-Care Reason For Visit: SYNCOPE/SEIZURE Discharge Diagnosis: Syncope, possible seizure PADDY, electrolyte abnormalities elevated troponin Condition on Discharge: Fair Activity: Per Instructions section Non-emergency contact: Primary Care Provider and Neurologist Call non-emergency contact if: you have any medication questions and your symptoms worsen Follow-up/Referrals: Mason Rosenthal MD [Primary Care Provider] - (Date & Time 01/24/2025 1:40 PM Provider: Mason Rosenthal DO General Internal Medicine [facility] ) Diet: Regular Addtl Attending Provider Instructions: Follow up with primary care doctor and neurologist. The appointment with primary care physician is arranged for you for 01/24/2025. You will need to see neurology in a month. As discussed with neurology - increase water intake, decrease caffeine intake, and decreased alcohol intake. Recommend only light exercise but not significant physical exertion until outpatient Neurology appointment. Advised the patient no driving per [place] law. Pending Studies at Discharge: Yes Studies:: EEG results Stand-Alone Forms: [facility] [employer], Smoking Cessation Medications and DC Order Prescriptions: No Action No Known Home Medications Discharge Orders: Discharge Order (Routine); Ordered 01/17/25 Ordered By: Phillip Orr Admission Data Admit Date/Time: 01/16/25 16:23 Attending Provider: Phillip Orr Admit Provider: Phillip Orr Primary Care Provider: Mason Rosenthal Other Providers: Phillip Orr; Iris Campuzano; Ney Scott; Adolfo Sifuentes; Titi Garza; Marciano Gamez; Jonatan Flores; Shawanda Schneider; Marlen Chiang; Mouna Wright; Esmer Peña; Iris Wilkes; Jean-Pierre Aguirre; Nasir Yarbrough; Katie Poole; Kirstin Foster; Paige Egan; Hiram Wisdom; Kian Montoya; Thania Sifuentes; Mitzi Caraballo; Paul Rice; Jose De Jesus Pugh; Darlin Sky
[2025-01-17 14:11] VITALS: BP 95/52
--- NOTE | 2025-01-20 10:22 | Electrocardiogram Report ---
Test Reason : Blood Pressure : */* mmHG Vent. Rate : 75 BPM Atrial Rate : 75 BPM P-R Int : 172 ms QRS Dur : 104 ms QT Int : 352 ms P-R-T Axes : 20 42 24 degrees QTcB Int : 393 ms Normal sinus rhythm Normal ECG When compared with ECG of 16-Jan-2025 11:45, No significant change was found Confirmed by Evan Barakat ([id number]) on 01/20/2025 10:21:52 AM Referred By: REFERRED SELF Confirmed By: Evan Barakat
== END 2025-01-17 14:20 | disposition home or self-care (01) | DRG 683 ==
LOC: ED 11:38 → INTOOBSV 16:23 → EDINP 16:23 → 2N 19:37